=== PATIENT | male | born 1955 | race Hispanic/Latino ===

== ENCOUNTER → 2019-04-06 | Day surgery (SDC) | payer MEDICARE ==
[2019-04-04 13:38] LABS: BASOPHILS % 0.6 % (0.0-1.0); EOSINOPHILS # (AUTO) 0.4 (0.0-0.4); EOSINOPHILS % 6.2 % (0.0-6.0); HEMATOCRIT 43.5 % (38.2-49.6); HEMOGLOBIN 14.8 g/dL (14.0-18.0); LYMPHOCYTES # (AUTO) 1.5 (1.0-3.2); LYMPHOCYTES % 23.3 % (18.0-39.1); MEAN CORPUSCULAR VOLUME 79.2 fL (81-99); MONOCYTES # (AUTO) 0.6 (0.2-0.8); MONOCYTES % 9.1 % (4.4-11.3); NEUTROPHILS % 60.5 % (38.7-80.0); PLATELET COUNT 232 x10e3/uL (140-360); RED BLOOD COUNT 5.49 x10e6/uL (4.3-5.7); RED CELL DISTRIBUTION WIDTH 15.6 % (11.7-14.4)
--- NOTE | 2019-04-04 13:46 | Diagnostic Imaging Report ---
EXAMINATION: CHEST 2 VIEWS INDICATION: Pre-operative COMPARISON: None FINDINGS: Images limited by underpenetration and patient body habitus. LINES/TUBES:None LUNGS:The lungs are well-inflated. No focal consolidation or pulmonary edema. PLEURA:No pleural effusion or pneumothorax. MEDIASTINUM:Cardiomegaly. BONES/SOFT TISSUES:No acute osseous injury. Degenerative changes of the visualized spine. ABDOMEN:No free air under the diaphragm. IMPRESSION: No focal pneumonia or pulmonary edema. Signed by: Shane Schwarz MD on 04/04/2019 1:43 PM
[2019-04-04 13:57] LABS: ANION GAP 17.2 mmol/L (8-16); BLOOD UREA NITROGEN 24 mg/dL (7-26); BUN/CREATININE RATIO 21 (6-25); CALCIUM 9.7 mg/dL (8.4-10.2); CARBON DIOXIDE 25 mmol/L (22-29); CHLORIDE 97 mmol/L (98-107); CREATININE, SERUM 1.16 mg/dL (0.72-1.25); EST GLOMERULAR FILTRATION RATE > 60 ML/MIN (60-); GLUCOSE 304 mg/dL (74-118); POTASSIUM 4.2 mmol/L (3.5-5.1); SODIUM 135 mmol/L (136-145)
[~2019-04-06] MED LIST: ACETAMINOPHEN 1000 MG/100 ML IV ONE; ASPIRIN81 MG PO; B&O 60MG R/S 60 MG SUPP PR ONE; BUPIVACAINE HCL 0.5% INJ 30 ML VIAL INJ ONE; CLONIDINE HCL0.1 MG PO; CLOPIDOGREL75 MG PO; CRESTOR10 MG PO; DEXAMETHASONE SOD PHOS INJ 4 MG/ML VIAL ONE; DIOVAN HCT 3201 EACH PO; FENTANYL CITRATE/PF 100MCG/2 ML INJ ONE; FLOMAX0.4 MG PO; GABAPENTIN600 MG PO; GENTAMICIN 80MG/NS 100 ML 200 ML IV ONE; HUMALOG MI100 UNIT/4 SQ; INSULIN REGULAR, HUMAN 100 UNIT/1 ML 3ML VIAL ONE; IOPAMIDOL 610MG/1ML 300 MG/ML VIAL IV ONE; ISOSORBIDE MONO30 MG PO; LIDOCAINE HCL 2% JELLY 5 ML TUBE ONE; LIDOCAINE HCL 2% LOCAL INJ 5 ML SDV VIAL INJ ONE; METOPROLOL TART50 MG PO; MIDAZOLAM HCL 2 MG/2 ML VIAL ONE; NEOSTIGMINE 1 MG/ML 10ML VIAL ONE; PANTOPRAZOLE SO40 MG PO; PIPER-TAZ 3.375 GM 50 ML ONE; PRAMIPEXOLE D0.25 MG PO; PROPOFOL IV EMULSION 10 MG/ML 20 ML VIAL ONE; ROCURONIUM BROMIDE 10 MG/ML 5ML VIAL ONE; SEVOFLURANE INHAL SOLN 250 ML PEN BTL ONE; SUCCINYLCHOLINE 200 MG/10 ML SYR ONE; SUGAMMADEX SODIUM 200 MG/2 ML VIAL IV ONE; TRESIBA SQ; VERAPAMIL ER120 MG PO; VITAMIN D PO
--- OUTSIDE RECORDS SUMMARY | 2019-04-06 07:29 | XMS REPORT ---
[facility] Address Unknown Phone Unavailable Care Team Providers Care Nub Card Tender Name Role Phone BRADLY BELL Unavailable Unavailable Payers Payer Name Policy Type Policy Number Effective Date Expiration Date Problems This patient has no known problems. Allergies, Adverse Reactions, Alerts Allergy Name Allergy Type Status Severity Reaction(s) Onset Date Inactive Date Treating Clinician Comments No Known Allergies DA Active U 2015-11-12 00:00:00 Medications This patient has no known medications. Encounters Start Date/Time End Date/Time Encounter Type Admission Type Attending Clinicians [facility] Care Department Encounter ID 2019-02-13 11:28:00 2019-02-13 11:28:00 Outpatient [id number] Results Test Description Test Time Test Comments Text Results Atomic Results Result Comments CHEST 2 VIEWS 2019-04-04 13:41:00 [facility] [address] [place] [address] Patient Name: MARCELO TORREZ MR #: [id number] : 1955 Age/Sex: 63/M Req #: [id number] Adm Physician: Ordered by: BRADLY BELL MD Report #: [id number] Location: OR Room/Bed: Procedure: [id number] DX/CHEST 2 VIEWS Exam Date: 04/04/19 Exam Time: 1315 REPORT STATUS: Signed EXAMINATION: CHEST 2 VIEWS INDICATION: Pre-operative COMPARISON: None FINDINGS: Images limited by underpenetration and patient body habitus. LINES/TUBES:None LUNGS:The lungs are well- inflated. No focal consolidation or pulmonary edema. PLEURA:No pleural effusion or pneumothorax. MEDIASTINUM:Cardiomegaly. BONES/SOFT TISSUES:No acute osseous injury. Degenerative changes of the visualized spine. ABDOMEN:No free air under the diaphragm. IMPRESSION: No focal pneumonia or pulmonary edema. Signed by: Kian Patel MD on 04/04/2019 1:43 PM Dictated By: KIAN PATEL MD [id number] Transcribed By: ROSSANA on 04/04/19 1343 COPY TO: BRADLY BELL MD
--- OUTSIDE RECORDS SUMMARY | 2019-04-06 07:29 | XMS REPORT | Clinical Summary ---
Author Author [facility] Address Unknown Phone Unavailable Care Team Providers Care Power Brake Operator Name Role Phone Mark Anthony Beaulieu MD PCP Allergies No Known Allergies Medications End Date Status Medication Sig Dispensed Refills Start Date Active hydroCHLOROthiazide Take 25 mg by 0 (HYDRODIURIL) 25 MG mouth daily. 8 tablet Active NOVOLOG U-100 INSULIN USE 160 UNITS 0 ASPART 100 unit/mL A DAY VIA 8 injection PUMP FOR 2 WEEKS Active phentermine (ADIPEX-P) Take 37.5 mg 5 37.5 mg tablet by mouth 8 daily. Active VOLTAREN 1 % gel APPLY 100 g 0 TOPICALLY 4 8 (FOUR) TIMES A DAY. APPLY 2GM ON EFFECTED AREA Active Problems Problem Noted Date Primary osteoarthritis of right knee 01/13/2018 Family History Medical History Relation Name Comments Cancer Father Heart disease Mother Hypertension Mother Relation Name Status Comments Father Mother Social History Date Tobacco Use Types Packs/Day Years Used Never Smoker Alcohol Use Drinks/Week oz/Week Comments No Sex Assigned at Date Recorded Not on file Industry Job Start Date Occupation Not on file Not on file Not on file Travel End Travel History Travel Start No recent travel history available. Last Filed Vital Signs Not on file Plan of Treatment Health Maintenance Due Date Last Done Comments COLONOSCOPY SCREENING 2005 SHINGLES VACCINES (#1) 2005 INFLUENZA VACCINE 03/29/2019 Results Not on fileafter 04/05/2018 Insurance Type Payer Benefit Subscriber ID Effective Phone Address Plan / Dates Group PPO HUMANA MEDICARE HUMANA xxxxxxxxx 2017-P MEDICARE resent PPO/PFFS/E RS [facility] Advance Directives Patient has advance care planning documents on file. For more information, hannah griffin contact: Yoni Marie [address] [place] [address]
[2019-04-06 14:45] VITALS: BP 159/98
--- NOTE | 2019-05-29 05:15 | Operative Report ---
DATE OF PROCEDURE: 04/06/2019 SURGEON: Oscar Correia MD PREOPERATIVE DIAGNOSES: 1. Phimosis. 2. Balanoposthitis. 3. Urinary tract infections. 4. Hematuria. POSTOPERATIVE DIAGNOSES: 1. Phimosis. 2. Balanoposthitis. 3. Urinary tract infections. 4. Hematuria. OPERATIONS PERFORMED: 1. Transrectal ultrasonography interpretation, no radiologist present. 2. Ultrasonographic guidance needle biopsies of the prostate, no radiologist present. 3. Transrectal needle biopsies of the prostate (separate procedure performed for the elevated PSA). 4. Circumcision (separate procedure performed for the phimosis). 5. Dorsal slit (separate procedure performed for the severe phimosis, this additional incision was needed to be done intraoperatively. 6. Regional nerve block (separate procedure performed for postoperative pain control and not required for the actual performance of surgery, which was done under general anesthesia. 7. Cystourethroscopy with bilateral ureteral catheterization and retrograde ureteropyelography (separate procedure performed for the urinary tract infection and hematuria. 8. Interpretation of retrograde ureteropyelography. 9. Supervision of fluoroscopy, no radiologist present. ANESTHESIA: General. COMPLICATIONS: None. CLINICAL SUMMARY: Celestino Martinez is a 63-year-old man with the above preoperative diagnoses. He was brought for the above procedures. He is aware of the risks of bleeding, infection, injury to adjacent structures, and need for additional procedures and elected to proceed. OPERATIVE PROCEDURE IN DETAIL: Informed consent was verified. Celestino Martinez was properly identified and taken to the operating room, he was placed laterally and stretched. Anesthesia uneventfully begun. Prostatic ultrasonography was performed. Interpretation of prostate ultrasonography, prostate volume was estimated at 81 mL. There were calcifications noted diffusely most prominently in the transition zone periurethrally. There were no obvious hypoechoic lesions that were suspicious, the prostate capsule was smooth and unremarkable and seminal vesicles were unremarkable as well. With ultrasonographic guidance, needle biopsies of the prostate were taken. Multiple biopsies were taken from each of six locations. These were differentiated right versus left and base versus mid versus apex. After obtaining all of these biopsies, the patient was carefully gently repositioned in the supine position on the operating table. His genitalia were shaved, prepared, and draped in usual sterile fashion. Marcaine without epinephrine was utilized to infiltrate circumferentially subcutaneously at the base of the penis as well as in the region of the dorsal penile nerves. This regional anesthetic block was performed for postoperative pain control and not required for the surgery which was done under general anesthesia. Circumferential incision was then made overlying the irene of the glans penis. The foreskin could be retracted. Therefore, a straight hemostat was then utilized as a crushing clamp at the cyanotic band. Other than this a dorsal slit incision was then made, this allowed us to fully retract the foreskin, which was then re-prepared with Betadine. Another incision was then made approximately 5 mm away from the irene of the glans penis along the inner preputial skin. A sleeve circumcision was then performed. The foreskin was removed. Pinpoint electrocautery was utilized to achieve hemostasis. The patient's incision was then approximated with 4-0 chromic suture with excellent cosmetic result. The patient was then carefully gently repositioned in dorsal lithotomy position. All pressure points well padded. He was redraped. Cystoscope sheath with visual obturator in place, it was atraumatically inserted into the patient's urethra. It was guided unremarkable distal urethra through normal sphincteric region through the prostate bed, which was significant for trilobar prostatic hypertrophy with kissing lateral lobes with severe obstructing coaptation of the lateral lobes, there appeared to be median lobe as well. We entered the patient's bladder where panendoscopy revealed trabeculations, but no tumors, no stones, no diverticula, normally positioned configured ureteral orifices were identified. An 8-[place] catheter was used to cannulate each ureter and retrograde ureteral pyelograms were performed. Interpretation of retrograde ureteropyelography contrast was instilled in retrograde fashion bilaterally. There was a bilateral ureteral tortuosity, this was more pronounced on the right-hand side, but there were no tumors, no stones, there were no suspicious upper tract lesions. Ureteral orifices were displaced in a cephalad fashion, but the patient has a large prostate. Unobstructed drainage was observed bilaterally fluoroscopically. The patient's bladder was drained, cystoscope withdrawn and the patient was uneventfully reversed from anesthesia and taken to recovery room in stable condition. Explicit postoperative instructions were given. We will follow the patient up in the office. Oscar MD Masood [place]/MODL /[id number] cc: Mark Anthony Beaulieu MD MTDD
== END | disposition home or self-care (01) ==
LOC: OR 07:24
PROVIDERS: ATTEND Urology
DX: R97.20 Elevated prostate specific antigen [PSA] (principal); N47.1 Phimosis; N47.6 Balanoposthitis; N39.0 Urinary tract infection, site not specified; N32.89 Other specified disorders of bladder; N13.8 Other obstructive and reflux uropathy; E11.9 Type 2 diabetes mellitus without complications; G47.33 Obstructive sleep apnea (adult) (pediatric); I11.0 Hypertensive heart disease with heart failure; I50.9 Heart failure, unspecified; K21.9 Gastro-esophageal reflux disease without esophagitis; G62.9 Polyneuropathy, unspecified; M19.90 Unspecified osteoarthritis, unspecified site; Z01.810 Encounter for preprocedural cardiovascular examination; Z01.812 Encounter for preprocedural laboratory examination; Z01.818 Encounter for other preprocedural examination; Z79.02 Long term (current) use of antithrombotics/antiplatelets; Z79.82 Long term (current) use of aspirin; Z79.4 Long term (current) use of insulin
CPT/HCPCS: 36415 ×2; 52005; 54161; 55700; 71046; 74420; 76872; 76998; 80048; 82948; 85025; 88304; 88305; 93005; C1758; J0131; J1100; J1580; J2001 ×2; J2250; J2543; J2704; J2710; J3010; Q9967; J1817

== ENCOUNTER → 2019-05-02 | Outpatient (CLI) | payer MEDICARE ==
[~2019-05-02] MED LIST changes: -ACETAMINOPHEN 1000 MG/100 ML IV ONE; -B&O 60MG R/S 60 MG SUPP PR ONE; -BUPIVACAINE HCL 0.5% INJ 30 ML VIAL INJ ONE; -DEXAMETHASONE SOD PHOS INJ 4 MG/ML VIAL ONE; -FENTANYL CITRATE/PF 100MCG/2 ML INJ ONE; -GENTAMICIN 80MG/NS 100 ML 200 ML IV ONE; -INSULIN REGULAR, HUMAN 100 UNIT/1 ML 3ML VIAL ONE; -IOPAMIDOL 610MG/1ML 300 MG/ML VIAL IV ONE; -LIDOCAINE HCL 2% JELLY 5 ML TUBE ONE; -LIDOCAINE HCL 2% LOCAL INJ 5 ML SDV VIAL INJ ONE; -MIDAZOLAM HCL 2 MG/2 ML VIAL ONE; -NEOSTIGMINE 1 MG/ML 10ML VIAL ONE; -PIPER-TAZ 3.375 GM 50 ML ONE; -PROPOFOL IV EMULSION 10 MG/ML 20 ML VIAL ONE; -ROCURONIUM BROMIDE 10 MG/ML 5ML VIAL ONE; -SEVOFLURANE INHAL SOLN 250 ML PEN BTL ONE; -SUCCINYLCHOLINE 200 MG/10 ML SYR ONE; -SUGAMMADEX SODIUM 200 MG/2 ML VIAL IV ONE
--- NOTE | 2019-05-02 09:54 | Diagnostic Imaging Report ---
EXAM: US TESTICULAR DOPPLER LTD DATE: 05/02/2019 8:37 AM INDICATION: Epididymitis COMPARISON: None FINDINGS: Scrotal ultrasound examination with garcia scale, color Doppler, spectral interrogation was performed. The right testicle is normal in size measuring 4.0 x 1.9 x 3.0 cm. No focal intratesticular lesion is identified. Arterial and venous flow are preserved. The right epididymis measures 1.2 x 0.9 x 0.8 cm. There is no evidence for hyperemia. Incidentally noted are subcentimeter epididymal cysts measuring 0.6 x 0.4 cm and 0.4 x 0.4 cm. A trace right-sided hydrocele is present. The left testicle is normal in size measuring 3.8 x 2.3 x 3.1 cm. No focal intratesticular lesion is identified. Arterial and venous flow are preserved. The left epididymis measures 1.3 x 0.5 x 0.7 cm. There is no evidence for hyperemia. There is no hydrocele present. No significant varicocele is identified. IMPRESSION: Trace right-sided hydrocele. Subcentimeter right epididymal cysts. Otherwise, unremarkable testicular ultrasound examination. Signed by: Dr. Juan Hooks MD on 05/02/2019 9:51 AM
== END ==
LOC: US 08:24
PROVIDERS: ATTEND Urology
DX: N45.1 Epididymitis (principal)
CPT/HCPCS: 76870; 93976

== ENCOUNTER 2022-11-04 17:59 | Emergency (ER) | payer OTHER ==
[~2022-11-04] VITALS: Ht 172.7 cm; Wt 147.4 kg
[2022-11-04 19:05] LABS: BASOPHILS # (AUTO) 0.1 (0.0-0.1); BASOPHILS % 1.1 % (0.0-1.0); EOSINOPHILS % 11.4 % (0.0-6.0); HEMATOCRIT 38.5 % (38.2-49.6); HEMOGLOBIN 12.7 g/dL (14.0-18.0); LYMPHOCYTES # (AUTO) 1.2 (1.0-3.2); LYMPHOCYTES % 14.4 % (18.0-39.1); MEAN CORPUSCULAR HEMOGLOBIN 24.3 pg (28-32); MEAN CORPUSCULAR VOLUME 73.6 fL (81-99); MONOCYTES # (AUTO) 0.6 (0.2-0.8); MONOCYTES % 7.5 % (4.4-11.3); NEUTROPHILS # (AUTO) 5.5 (2.1-6.9); NEUTROPHILS % 65.4 % (38.7-80.0); PLATELET COUNT 318 x10e3/uL (140-360); RED BLOOD COUNT 5.23 x10e6/uL (4.3-5.7); RED CELL DISTRIBUTION WIDTH 17.3 % (11.7-14.4)
[2022-11-04 19:29] LABS: ALBUMIN 3.1 g/dL (3.5-5.0); ALBUMIN/GLOBULIN RATIO 0.7 (0.8-2.0); ANION GAP 12.1 mmol/L (8-16); CREATININE, SERUM 1.14 mg/dL (0.72-1.25); POTASSIUM 4.1 mmol/L (3.5-5.1)
[2022-11-04 22:16] VITALS: BP 146/82
== END 2022-11-05 00:10 | disposition home or self-care (01) ==
LOC: ER 18:12
DX: N43.3 Hydrocele, unspecified (principal); I10 Essential (primary) hypertension; E11.9 Type 2 diabetes mellitus without complications; I50.9 Heart failure, unspecified; K21.9 Gastro-esophageal reflux disease without esophagitis; E78.00 Pure hypercholesterolemia, unspecified
CPT/HCPCS: 36415; 76870; 80053; 85025; 93976; 99284